=== PATIENT | female | born 1990 | race Caucasian/White ===

== ENCOUNTER 2018-08-10 02:58 | Inpatient (IN) | payer SELFPAY ==
[2018-08-10] MEDS: LACTATED RINGER'S 1,000 ML IV (03:28)
[2018-08-10] MEDS ORDERED: OXYTOCIN 30 UNITS/LR 500 ML IV ×2 (03:30→06:00)
[2018-08-10] MEDS ORDERED: MISOPROSTOL 200 MCG TAB PR ×2 (03:30→06:00)
[2018-08-10] MEDS ORDERED: METHYLERGONOVINE 0.2 MG INJ IM ×2 (03:30→06:00)
[2018-08-10] MEDS ORDERED: CARBOPROST 250 MCG INJ IM ×2 (03:30→06:00)
[2018-08-10] MEDS: AMPICILLIN 2 GM/NS (PMX) 100 ML IV (03:31)
[2018-08-10 03:35] LABS: ADD MAN DIFF? NO
[2018-08-10 03:57] LABS: INR 0.85; PARTIAL THROMBOPLASTIN TIME 27.5 Sec (23.0-35.0); PROTIME 11.7 Sec (11.9-14.9); PT RATIO 0.9
[2018-08-10 04:09] LABS: ABNORMAL IP MESSAGE 1; BASOPHIL # 0.1 10^3/ul (0.0-0.1); BASOPHILS % 0.5 % (0.0-2.0); EOSINOPHILS % 0.4 % (0.0-7.0); HEMATOCRIT 36.9 % (37.0-47.0); HEMOGLOBIN 11.2 g/dl (12.0-16.0); LYMPHOCYTES # 2.6 10^3/ul (0.8-2.9); LYMPHOCYTES % 23.4 % (15.0-51.0); MEAN CORPUSCULAR HEMOGLOBIN 21.1 pg (29.0-33.0); MEAN CORPUSCULAR HGB CONC 30.4 g/dl (32.0-37.0); MEAN CORPUSCULAR VOLUME 69.4 fl (82.0-101.0); MONOCYTE # 0.6 10^3/ul (0.3-0.9); MONOCYTES % 5.1 % (0.0-11.0); NEUTROPHIL # 7.8 10^3/ul (1.6-7.5); NEUTROPHILS % 70.1 % (39.0-77.0); PLATELET COUNT 273 10^3/UL (140-415); RED BLOOD COUNT 5.32 10^6/ul (4.20-5.40); RED CELL DISTRIBUTION WIDTH 22.2 % (11.5-14.5)
[2018-08-10 04:09] LABS: WHITE BLOOD COUNT 11.1 10^3/ul (4.8-10.8)
[2018-08-10 04:11] LABS: POSITIVE DIFF @See below
[2018-08-10 04:24] LABS: HEPATITIS B SURFACE ANTIGEN NEGATIVE (NEGATIVE)
[2018-08-10] MEDS: LIDOCAINE 1% (MPF) 30 ML INJ INJ (04:51)
[2018-08-10] MEDS: OXYTOCIN 30 UNITS/LR 500 ML IV ×3 (04:53→06:06)
[2018-08-10] MEDS ORDERED: ONDANSETRON 4 MG INJ IV (06:00)
[2018-08-10] MEDS ORDERED: NACL 0.9% 3 ML SYG IV (06:00)
[2018-08-10] MEDS ORDERED: LANOLIN HPA 1 PKT TOP (06:00)
[2018-08-10] MEDS ORDERED: ZOLPIDEM 5 MG TAB PO (06:00)
[2018-08-10] MEDS ORDERED: HYDROCODONE/APAP (5/325) TAB PO (06:00)
[2018-08-10] MEDS ORDERED: DIPHENHYDRAMINE 25 MG CAP PO (06:00)
[2018-08-10] MEDS ORDERED: METHYLERGONOVINE 0.2 MG TAB PO (06:00)
[2018-08-10] MEDS ORDERED: ACETAMINOPHEN 325 MG TAB PO (06:00)
[2018-08-10] MEDS: WITCH HAZEL/GLYCERIN PAD PR (06:22)
[2018-08-10] MEDS: IBUPROFEN 600 MG TAB PO ×4 (06:23→23:24)
[2018-08-10] MEDS ORDERED: AMPICILLIN 1 GM/NS (PMX) 50 ML IV (07:30)
[2018-08-10 08:49] LABS: AMPHETAMINE/METHAMPHETAMINE Negative (NEGATIVE); BARBITURATES Negative (NEGATIVE); BENZODIAZEPINES Negative (NEGATIVE); CANNABINOIDS Negative (NEGATIVE); COCAINE Negative (NEGATIVE); OPIATES Negative (NEGATIVE)
[2018-08-10] MEDS: PRENATAL VITAMIN PO (09:46)
[2018-08-10] MEDS: SENNA/DOCUSATE NA (8.6MG/50MG) TAB PO ×2 (09:46→21:11)
[2018-08-10 12:14] LABS: HIV 1&2 ANTIBODY NEGATIVE (NEGATIVE)
[2018-08-10 14:44] LABS: RAPID PLASMA REAGIN NONREACTIVE (NR)
[2018-08-11] MEDS: IBUPROFEN 600 MG TAB PO ×3 (05:47→17:19)
[2018-08-11 07:42] LABS: HEMATOCRIT 29.6 % (37.0-47.0); HEMOGLOBIN 8.9 g/dl (12.0-16.0)
[2018-08-11] MEDS: PRENATAL VITAMIN PO (09:12)
[2018-08-11] MEDS: SENNA/DOCUSATE NA (8.6MG/50MG) TAB PO ×2 (09:12→21:17)
[2018-08-12] MEDS: IBUPROFEN 600 MG TAB PO ×3 (00:02→11:32)
[2018-08-12] MEDS: PRENATAL VITAMIN PO (08:53)
[2018-08-12] MEDS: SENNA/DOCUSATE NA (8.6MG/50MG) TAB PO (08:53)
[2018-08-13 12:22] LABS: RUBELLA ANTIBODY - IGG 9.02 index; RUBELLA ANTIBODY - IGM <20.00 AU/mL
== END 2018-08-12 15:10 | disposition home or self-care (01) | DRG 807 ==
LOC: OBT 02:58 → L-D 02:59 → OBT 03:07 → L-D 03:07 → PP1 06:45
PROVIDERS: Obstetrics & Gynecology Obstetrics
PROC: 10E0XZZ Delivery of Products of Conception, External Approach (ICD-10-PCS; principal; 2018-08-10)
PROC: 0KQM0ZZ Repair Perineum Muscle, Open Approach (ICD-10-PCS; 2018-08-10)
PROC: 10907ZC Drainage of Amniotic Fluid, Therapeutic from Products of Conception, Via Natural or Artificial Opening (ICD-10-PCS; 2018-08-10)
DX: O62.3 Precipitate labor (principal); Z37.0 Single live birth; O69.81X0 Labor and delivery complicated by cord around neck, without compression, not applicable or unspecified; O70.1 Second degree perineal laceration during delivery; Z3A.40 40 weeks gestation of pregnancy
CPT/HCPCS: 80307; 85014; 85018; 85025; 85610; 85730; 86592; 86703; 86762; 86850; 86900; 86901; 87340